=== PATIENT | male | born 1980 | race Caucasian/White ===

== ENCOUNTER 2017-02-25 22:29 | Emergency (ER) | payer SELFPAY ==
--- NOTE | ~2017-02-25 | ER ---
PATIENT'S NAME: JONNA THOMAS [facility] AGE: 36 Y [address] ROOM: [place] [id number] LOCATION: [facility] ADMIT DATE: 02/25/2017 ER/Outpatient Report DISCHARGE DATE: 02/25/2017 FAMILY PHYSICIAN: PHYSICIAN, NO ATTENDING PHYSICIAN: Susan Mckinnon CHIEF COMPLAINT: Cat bite to right hand. TIME OF THE PATIENT ARRIVAL: 2229 hours. TIME OF THE PATIENT EVALUATION: 2245 hours. HISTORY OF PRESENT ILLNESS: This is a 36-year-old male who presents to the ER who states he was bit by his cat approximately 30 minutes prior to arrival. The patient states that he believes the cat's immunizations are up-to-date. He states that his tetanus shot is not up-to-date. He denies any other problems at this time. ALLERGIES: PENICILLIN. MEDICATIONS: None. PAST MEDICAL HISTORY: Heart murmur. PAST SURGERIES: None. SOCIAL HISTORY: He does smoke cigarettes. Denies any drug or alcohol use. REVIEW OF SYSTEMS: CONSTITUTIONAL: Denies any change in weight or fatigue. MUSCULOSKELETAL: No weakness or myalgias. HEMATOLOGIC: No easy bruising or bleeding. SKIN: Has puncture wounds to his right hand from cat bite. PHYSICAL EXAMINATION: VITAL SIGNS: Height 6 feet, 6 inches stated, weight 68.6 kg taken, blood pressure is 133/64, pulse 74, respirations 14, temperature 98.8 degrees PATIENT'S NAME: THOMAS COYLE [facility] AGE: 36 Y [address] ROOM: [place] [address] LOCATION: [facility] ADMIT DATE: 02/25/2017 ER/Outpatient Report DISCHARGE DATE: 02/25/2017 FAMILY PHYSICIAN: PHYSICIAN, NO ATTENDING PHYSICIAN: Susan Mckinnon tympanically, and saturations 95% on room air. Ebony Coma Score is 15. GENERAL: Alert, calm, well-developed male, in no acute distress. HEENT: Head: Normocephalic. He does display moist mucous membranes. EXTREMITIES: No clubbing or cyanosis. He does have full range of motion of his right hand. I cannot elicit any pain over the bony aspects of his right hand. SKIN: He has 2 puncture wounds noted to the palm and 2 puncture wounds noted to the dorsal aspect of his right hand. There is no swelling, no erythema, and no active bleeding. LABS AND X-RAYS: None were done. IMPRESSION: Cat bite to right hand. ASSESSMENT AND PLAN: We did update him on his tetanus shot here in the emergency room and we will start him on doxycycline to use as directed. He needs to monitor his skin closely. We did cleanse the hand and placed a bandage to the hand for him as well and he should follow up with his primary care physician or return here to the emergency room if he worsens. The patient understands and agrees with care. KEIRY VARGAS PA-C FOR MD ANIKA MALDONADO/harish /[id number] d: 02/26/17 0340 t: 03/01/17 0644, OUTPATIENT REPORT
== END 2017-02-25 23:06 | disposition disaster alternative care site (69) ==
LOC: GACC 22:29
DX: S61.431A Puncture wound without foreign body of right hand, initial encounter (principal); Z23 Encounter for immunization; F17.210 Nicotine dependence, cigarettes, uncomplicated; W55.01XA Bitten by cat, initial encounter